=== PATIENT | female | born 1940 | race Caucasian/White ===

== ENCOUNTER 2017-06-28 12:18 | Outpatient (CLI) | payer MEDICARE ==
--- OUTSIDE RECORDS SUMMARY | 2017-06-28 12:22 | XMS | Clinical Summary ---
:1940 Author Organization [facility] Address [address] [place] [address] Phone Care Team Providers Name Role Phone , Primary Care Provider Unavailable Allergies Not on File Current Medications Not on file Active Problems Not on file Social History Tobacco Use Types Packs/Day Years Used Date Never Assessed Sex Assigned at Date Recorded Not on file Last Filed Vital Signs Not on file Plan of Treatment Not on file Results Not on filefrom Last 3 Months
--- NOTE | 2017-06-28 14:56 | ULT ---
RENAL ULTRASOUND: History: Urinary incontinence. Recurrent urinary tract infection. Comparison: None. Technique: Sagittal and transverse imaging of the kidneys is performed. FINDINGS: Bilateral renal cortical thinning. Bilaterally no hydronephrosis. Right kidney measures 9.2 x 4.7 x 4.3 cm. Left kidney measures 9.6 x 5.5 x 4.5 cm. Urinary bladder i s unremarkable with a pre void volume of 39 cubic/cm. IMPRESSION: Bilateral renal cortical thinning. No hydronephrosis. POS: [facility]
== END 2017-06-28 12:19 | disposition home or self-care (01) ==
LOC: SCSULT 12:18
PROVIDERS: ATTEND Urology
DX: N39.46 Mixed incontinence (principal); N39.0 Urinary tract infection, site not specified
CPT/HCPCS: 76770

== ENCOUNTER 2017-11-16 12:55 | Outpatient (CLI) | payer MEDICARE ==
--- NOTE | 2017-11-16 14:39 | CT ---
CT OF BRAIN PERFORMED WITHOUT CONTRAST ENHANCEMENT: Date: 11/16/17 HISTORY: Follow-up of subarachnoid hemorrhage from fall 3 weeks ago. COMPARISON: None. FINDINGS: There is generalized ventricular and sulcal prominence. There is decreased attenuation of the periven tricular white matter. There are no signs of intracerebral hemorrhage or extra-axial fluid collection s. The mastoid air cells and visualized sinuses are clear. IMPRESSION: No acute intracranial abnormalities. POS: [facility]
== END 2017-11-16 12:56 | disposition home or self-care (01) ==
LOC: TBSIIMAG 12:55
PROVIDERS: ATTEND Surgery
DX: S06.6X0A Traumatic subarachnoid hemorrhage without loss of consciousness, initial encounter (principal)
CPT/HCPCS: 70450

== ENCOUNTER 2018-07-03 16:18 | Outpatient (CLI) | payer MEDICARE ==
--- NOTE | 2018-07-03 17:20 | RAD ---
RIGHT ANKLE 3 VIEWS: Date: 07/03/18 HISTORY: Fall. Right ankle injury. FINDINGS: Ankle mortise and talar dome are intact. Osseous structures are demineralized. Mild degenerative calvillo ges. Plantar heel spur. Osseous structures are demineralized. Deformity of the fifth metatarsal is no prabhjot with some linear lucency visible. IMPRESSION: 1. Abnormality of the fifth metatarsal shaft may represent an old injury versus an acute fracture. C linical correlation regarding the right fifth metatarsal shaft is required. Dedicated imaging of the foot may be warranted. 2. Mild degenerative changes of the ankle. Osteoporosis. POS: [facility]
== END 2018-07-03 16:19 | disposition home or self-care (01) ==
LOC: SCSRAD 16:18
PROVIDERS: ATTEND Specialist
DX: S93.401A Sprain of unspecified ligament of right ankle, initial encounter (principal); M19.071 Primary osteoarthritis, right ankle and foot; M81.0 Age-related osteoporosis without current pathological fracture; R93.7 Abnormal findings on diagnostic imaging of other parts of musculoskeletal system

== ENCOUNTER 2018-08-09 14:24 | Outpatient (CLI) | payer MEDICARE ==
--- NOTE | 2018-08-09 14:54 | RAD ---
RIGHT WRIST THREE VIEWS: History: Numbness. FINDINGS: There is prominent arthropathy of the first CMC joint with associated lateral translation of the thum b metacarpal and prominent surrounding heterotopic density. No acute fracture visualized. IMPRESSION: Prominent arthropathy centered at the first CMC joint. No acute fracture visualized. POS: [facility]
--- NOTE | 2018-08-09 14:55 | RAD ---
THREE VIEWS RIGHT HAND: Indication: Numbness. FINDINGS: There is metallic artifact overlying the fourth digit limiting visualization. Prominent arthropathy o f the first CMC joint with associated lateral translation of the thumb metacarpal relative to the tra pezium. There is osseous remodeling and prominent heterotopic density. No acute fracture. Scattered m ild degenerative change of the IP joints is seen. IMPRESSION: Prominent arthropathy centered at the first CMC joint. No acute osseous abnormality is demonstrated. POS: [facility]
== END 2018-08-09 14:25 | disposition home or self-care (01) ==
LOC: SCSRAD 14:24
PROVIDERS: ATTEND Nurse Practitioner Family
DX: R20.0 Anesthesia of skin (principal); M18.11 Unilateral primary osteoarthritis of first carpometacarpal joint, right hand

== ENCOUNTER 2018-09-08 08:43 | Outpatient (CLI) | payer MEDICARE ==
--- NOTE | 2018-09-08 10:50 | RAD ---
LUMBAR SPINE FOUR VIEWS: 09/08/2018 HISTORY: Spinal stenosis. Prior lumbar spine surgery. FINDINGS: Frontal examination of the lumbar spine demonstrates bilateral pedicle screws at L3, L4, and L5, with vertically oriented interlocking rods and intervertebral disk devices at the L3-L4 and L4-L5 levels. Osteopenia limits detailed assessment of the osseous structures, particularly on the frontal view. Neutral lateral examination demonstrates an old anterior wedge compression fracture of L3 with approx imately 35% loss of vertebral body height anteriorly. At L2-L3, there is disk space narrowing and de generative endplate change with anterior osteophyte formation. Similar findings are noted at the L5- S1 level. On neutral lateral imaging, there is anterolisthesis of L5 on S1, measuring approximately 5 mm. Of note, the superior aspect of the posterior fusion hardware is directed slightly posteriorly, exten ding into the posterior soft tissues of the mid lumbar spine. This may account for a palpable abnorm ality in this region. There is a degree of focal kyphosis at L2-L3, on the basis of a remote L3 frac ture, as well as degenerative change at L2-L3. There is a probable remote mild anterior wedge compre ssion fracture of L2 as well. There is mild retrolisthesis on the neutral imaging at L3-L4, measuring 5 mm. With extension, the anterolisthesis at L5-S1 and the retrolisthesis at L3-L4 is unchanged. These fin dings are also unchanged on flexion. IMPRESSION: Postoperative and degenerative change noted within the lumbar spine, as described above. POS: [facility]
== END 2018-09-08 08:44 | disposition home or self-care (01) ==
LOC: SCSRAD 08:43
PROVIDERS: ATTEND Nurse Practitioner Family
DX: M48.061 Spinal stenosis, lumbar region without neurogenic claudication (principal); Z98.1 Arthrodesis status
CPT/HCPCS: 72120

== ENCOUNTER 2018-11-02 11:33 | Outpatient (CLI) | payer MEDICARE ==
--- NOTE | 2018-11-02 13:34 | CT ---
NONCONTRAST CT LUMBAR SPINE: Date: 11-02-18 History: Post lumbar surgery. Patient has low back pain. Comparison: None available. Technique: Contiguous axial CT images are obtained through the lumbar spine from the T12-L1 level to the upper sacrum. Sagittal and coronal reformat images are provided. FINDINGS: Vascular calcifications are seen in the abdominal aorta and involving the iliac arteries. A few radio paque densities are seen in loops of bowel, likely related to ingested material. Retroperitoneal stru ctures otherwise demonstrate a normal CT appearance. Post-surgical changes of the lumbar spine are noted related to posterior fusion of the L3-4 and L4-5 levels with bipedicular screws and posterior rods transfixing these levels. The most superior aspect of the posterior rods are projected posteriorly and appear to be just beneath the skin surface. Vertebroplasty changes of the L2 vertebral body are noted. T12-L1: Mild facet degenerative changes are present. There is no disc bulge or disc herniation. Centr al spinal canal and neural foramina are patent. L1-2: There is minimal disc osteophyte complex which does not result in significant narrowing of the central spinal canal. The neural foramina are patent. L2-3: Vertebroplasty changes with mild wedged shaped compression fracture of the L2 vertebral body ar e noted as described above. There is prominent vacuum phenomenon seen within the intervertebral disc, and there is loss of intervertebral disc height. There is a disc osteophyte complex present at this level which in combination with the exaggerated kyphosis and facet hypertrophic changes does result i n mild to moderate narrowing of the central spinal canal. There is mild right sided neural foraminal narrowing due to encroachment posteriorly by facet hypertrophic changes. The left neural foramen is p atent. L3-4: There is fusion at this level. There is retrolisthesis of L3 on L4. There is also mild wedge sh aped deformity of the L3 vertebral body. This is stable when compared to MRI of the lumbar spine on . There is mild right sided neural foraminal narrowing but the left neural foramen does appear patent. Intradiscal prosthesis is present at the L3-4 level. L4-5: There is fusion at this level with intradiscal prosthesis present. Right laminotomy defect is p resent at this level. The left neural foramen is patent, but there is mild right sided neural foramin al narrowing primarily related to encroachment due to mild facet degenerative changes. The central sp inal canal is patent. L5-S1: There is trace anterolisthesis of L5 on S1 which measures approximately 4 mm. There is loss of intervertebral disc height with vacuum phenomenon seen in the intervertebral disc. Facet hypertrophi c changes are noted. There is a broad based disc osteophyte complex and facet hypertrophic changes. T here is no significant narrowing of the central spinal canal at this level, but there is moderate lef t sided neural foraminal narrowing with mild to moderate right sided neural foraminal narrowing. There is a calcified/ossific density seen extending from the level of the S1 vertebral body and exten ds anteriorly and inferiorly into the lower pelvis but is incompletely imaged. This structure was als o present on prior MRIs of the lumbar spine in 2015 and on 10-22-13. IMPRESSION: 1. Post-surgical changes as well as degenerative changes of the lumbar spine. Bipedicular screws and posterior rods transfix the L3 through L5 levels. No perihardware lucency is seen to suggest hardware complication. However, due to patient's exaggerated kyphosis, the superior aspect of the posterior r ods project posteriorly and appear to be just beneath the skin surface. This may result in a palpable abnormality in this region. 2. Exaggerated kyphosis of the lumbar spine centered at the L2-3 level related to mild wedge shaped c ompression fractures of the L2 and L3 vertebral bodies. Vertebroplasty changes of the L2 vertebral burton dy are noted. 3. Grade I anterolisthesis of L5 on S1 with facet hypertrophic changes at this level as well as disc degenerative changes. 4. Elongated calcific/ossific density extending from the level of the lower aspect of the S1 vertebra l body which extends anteriorly and inferiorly into the pelvis. The most caudal extent is not seen. T his could be related to an area of heterotopic ossification. This finding was present on prior MRIs o f the lumbar spine in 2013 and 2015. 5. Right laminotomy defects at the L3-4 and L4-5 levels. POS: [facility]
== END 2018-11-02 11:34 | disposition home or self-care (01) ==
LOC: TBSIIMAG 11:33
PROVIDERS: ATTEND Neurological Surgery
DX: M54.5 Low back pain (principal); S32.020A Wedge compression fracture of second lumbar vertebra, initial encounter for closed fracture; S32.030A Wedge compression fracture of third lumbar vertebra, initial encounter for closed fracture; M43.17 Spondylolisthesis, lumbosacral region; M51.37 Other intervertebral disc degeneration, lumbosacral region; Z98.890 Other specified postprocedural states
CPT/HCPCS: 72131

== ENCOUNTER 2018-12-27 04:45 | Outpatient (CLI) | payer MEDICARE, OTHER | END 2018-12-27 04:46 | disposition home or self-care (01) | LOC: LABBT 04:45 | PROVIDERS: ATTEND Neurological Surgery | DX: Z01.818 Encounter for other preprocedural examination (principal); T84.498A Other mechanical complication of other internal orthopedic devices, implants and grafts, initial encounter | CPT/HCPCS: 93005; 93010 ==

== ENCOUNTER 2018-12-27 13:30 | Inpatient (IN) | payer MEDICARE, OTHER ==
[2018-12-27 14:04] VITALS: BMI 28.0
--- NOTE | 2018-12-28 16:12 | HP ---
HISTORY OF PRESENT ILLNESS: Ms. Decker is a pleasant 78-year-old woman, here for evaluation of lower back pain associated with fusion, hardware protuberance from an L3-L5 fusion she had in 2004. She has had increased pain toward the end of last year with what appears to be neurocompression deformities at L2-L3, which was treated with kyphoplasty with Dr. Onofre, resulting in 30% improvement in her symptoms. She has an MRI revealing severe kyphotic deformity beginning at L2 and progressing cranially. She has a new CT as well that reveals bony fusion across her L3 to L5 segments, but there is significant protuberance of her fusion construct at the cranial aspect at L3, where it is external to the subcu layer and is immediately deep to the epidermal layer as it appears on CAT scan. The system used is a [employer] Sextant percutaneous system. She hopes to get this removed surgically. PAST MEDICAL HISTORY: Significant for coronary arterial disease, hypertension, hypothyroidism, anxiety, bladder dysfunction, and mild cognitive impairment. CURRENT MEDICATIONS: 1. Tylenol No. 4. 2. Aricept. 3. Restoril. 4. Rizatriptan. 5. Aspirin. 6. Clonidine. 7. Metoprolol. 8. Levothyroxine. 9. Duloxetine. 10. Memantine. 11. Oxybutynin. ALLERGIES: TO ERYTHROMYCIN, BACTRIM, TROSPIUM, NEURONTIN, NUBAIN, TOPAMAX, MORPHINE, CONTRAST DYE, AND IV IODINE. PAST SURGICAL HISTORY: Lumbar fusion. PHYSICAL EXAMINATION: GENERAL: The patient is alert and oriented x3. Gait is severely antalgic. She has a significantly stooped posture and is using a walker to ambulate. Upon examination, she has two lateral scars with very obvious hardware protuberance in the upper lumbar spine. I am able to feel the gayle ends in full circumference at this level as well as the screw heads. This is notable for likely causing her pains. ASSESSMENT: Hardware-mediated back pain. PLAN: Dr. Hernandez met with the patient, reviewed imaging, and advocated for exploration of fusion and hardware removal. He explained to the patient the risks, benefits, and alternatives to the procedure. The patient expressed understanding and elected to move forward with surgery as discussed. I do believe the patient is mentally competent capable of making medical decisions for herself and we will move forward with surgery as planned. Job ID: [id number]
[2018-12-29] MEDS ORDERED: Thrombin 5000 UNITS/5 ML VIAL ONE (07:57)
[2018-12-29] MEDS ORDERED: Bupivacaine HCl 0.5%/Epinephrine 1:200,000/PF 30 ml Vial ONE (07:57)
[2018-12-29] MEDS ORDERED: Lidocaine 2% Jelly 5 ML TUBE ONE (08:21)
[2018-12-29] MEDS ORDERED: Fentanyl 100 MCG/2 ML VIAL ONE ×3 (08:21→11:14)
--- NOTE | 2018-12-29 10:33 | OP ---
DATE OF PROCEDURE: 12/29/2018 MACHINE SPECIALIST: Kory Walker PA-C. INDICATION: Pain. DIAGNOSIS: Mechanical back pain secondary to protuberant hardware. PROCEDURES PERFORMED: Exploration of effusion and removal of hardware. ANESTHESIA: General. DESCRIPTION OF PROCEDURE: The patient was brought into the operating room and placed under general anesthesia. She was flipped from the supine to prone position on the operating room table. A linear incision was planned across the lower lumbar segments. After prepping and draping and after an appropriate preoperative pause, the incision was created. The soft tissues were swept away from midline. Her large protuberant percutaneously placed hardware was identified. On both sides, three set screws were removed and three pedicle screws were removed on each side. The rods were also removed. The hardware was removed in total. Very prominent spinous process was also shaved down for comfort. The wound was then copiously irrigated. Gelfoam pledgets were placed within the screw holes of the pedicle screws. The wound was irrigated. Hemostasis was maintained throughout. The wound was then closed in anatomic layers and a pressure dressing was applied. There were no known procedural complications. Job ID: [id number]
[2018-12-29] MEDS ORDERED: HYDROcodone/Acetaminophen 5/325 mg Tablet ONE (12:37)
== END 2018-12-29 13:20 | disposition home or self-care (01) | DRG 517 ==
LOC: SURG A 12-29 06:21
PROVIDERS: ADMIT Neurological Surgery; ATTEND Neurological Surgery
PROC: 0SP00AZ Removal of Interbody Fusion Device from Lumbar Vertebral Joint, Open Approach (ICD-10-PCS; principal; 2018-12-29)
DX: T84.498A Other mechanical complication of other internal orthopedic devices, implants and grafts, initial encounter (principal); I10 Essential (primary) hypertension; E03.9 Hypothyroidism, unspecified; F41.9 Anxiety disorder, unspecified
CPT/HCPCS: 76000; J0670; J3010

== ENCOUNTER 2019-02-13 13:56 | Outpatient (CLI) | payer MEDICARE, OTHER ==
--- NOTE | 2019-02-13 14:12 | RAD ---
RIGHT HIP TWO VIEWS: History: Right hip pain. FINDINGS/IMPRESSION: There are degenerative changes seen. No fracture, dislocation, or bony destruction is identified. POS: [facility]
== END 2019-02-13 13:57 | disposition home or self-care (01) ==
LOC: TBSIIMAG 13:56
PROVIDERS: ATTEND Neurological Surgery
DX: M25.551 Pain in right hip (principal); M16.11 Unilateral primary osteoarthritis, right hip

== ENCOUNTER 2019-04-19 14:37 | Outpatient (CLI) | payer MEDICARE ==
--- NOTE | 2019-04-19 15:59 | CT ---
CT LUMBAR SPINE WITHOUT CONTRAST: Date: 04/19/19 HISTORY: Low back pain. COMPARISON: Lumbar spine CT dated 11/02/18. FINDINGS: The aortic contour is nonaneurysmal. No retroperitoneal or periaortic adenopathy. There is bilateral paraspinal muscle atrophy. There has been interval removal of the posterior spinal fusion hardware from L3-L5. Laminectomy mondragon es with partial removal of the spinous processes of L3 and L4 and laminectomy at L4. No acute superim posed fracture or malalignment. There continues to be severe bilateral neural foraminal narrowing at L5-S1 due to posterior disc osteophyte complexes. No large fluid collection is appreciated. Due to the exaggerated kyphosis, the osteotomy from the L3 spinous process is within 3 mm of the skin surface. IMPRESSION: Interval removal of the posterior spinal fusion hardware at L3-L5 with subsequent L3 and L4 hemilamin ectomy changes, as well as osteotomy of the L3 spinous process. POS: [facility]
== END 2019-04-19 14:38 | disposition home or self-care (01) ==
LOC: TBSIIMAG 14:37
PROVIDERS: ATTEND Neurological Surgery
DX: M54.5 Low back pain (principal); Z98.1 Arthrodesis status
CPT/HCPCS: 72131

== ENCOUNTER 2019-06-06 15:41 | Outpatient (CLI) | payer MEDICARE ==
--- NOTE | 2019-06-06 16:07 | RAD ---
EXAM: 2 views of the abdomen HISTORY: Right lower quadrant abdominal pain. Recent bladder Botox injection COMPARISON: None FINDINGS: 2 views of the abdomen shows a nonspecific, nonobstructive bowel gas pattern. No free air o r air-fluid levels are seen on upright examination. No suspicious calcifications are seen. Vertebroplasty cement is seen in the spine. Surgical clips project over the mid abdomen. IMPRESSION: No evidence of bowel obstruction.
== END 2019-06-06 15:42 | disposition home or self-care (01) ==
LOC: SCSRAD 15:41
PROVIDERS: ATTEND Nurse Practitioner Family
DX: R10.31 Right lower quadrant pain (principal)
CPT/HCPCS: 74019

== ENCOUNTER 2019-08-09 07:15 | Outpatient (CLI) | payer MEDICARE, OTHER ==
--- NOTE | 2019-08-09 08:25 | CT ---
CT ABDOMEN WITH CONTRAST CT PELVIS WITH CONTRAST: DATE: 08/09/2019 HISTORY: 79-year-old female with constipation and chronic right lower quadrant abdominal pain. TECHNIQUE: IV injection of iodinated contrast media: Administered Oral contrast media:Administered COMPARISON: None FINDINGS: Liver: No focal solid mass. Spleen: No splenomegaly.. Pancreas: No mass or surrounding fat stranding.. Adrenals: No mass.. Kidneys: No hydronephrosis or enhancement abnormalities.. Ureters: No dilation. Bladder: Inferior position in pelvis. Diffuse mural thickening. Decompressed.. Abdominal aorta: No aneurysm. Small bowel: No dilation. Colon: Moderate volume of stool. Diverticula throughout entire colon. No adjacent fat stranding. Appendix: Not identified. Perhaps surgically absent. Free air: None. Free fluid: None. Lumbar spine: Gibbus angulation at L2-3. Laminectomy defects. Vertebral bodies the cement at L2 verte bral body which has mild anterior wedge old compression fracture deformity. High-grade degenerative disc disease L2-3 and L5-S1. High-grade bilateral neural foraminal stenosis at L5-S1. IMPRESSION: 1. No obvious malignancy identified.. 2. Pelvic relaxation and status post hysterectomy. 3. Diffuse mural thickening of urinary bladder. Could be due to decompressed state, or could represen t acute or chronic cystitis. Clinical correlation recommended. 4. Colonic diverticulosis without diverticulitis. 5. Lumbar spondylosis and chronic changes as described above.
[2019-08-09] MEDS ORDERED: Iopamidol 370 76% 100 ML VIAL ONE (15:42)
== END 2019-08-09 07:16 | disposition home or self-care (01) ==
LOC: CT 07:15
PROVIDERS: ATTEND Internal Medicine
DX: R10.31 Right lower quadrant pain (principal); K59.00 Constipation, unspecified; K57.30 Diverticulosis of large intestine without perforation or abscess without bleeding; M47.816 Spondylosis without myelopathy or radiculopathy, lumbar region; N32.9 Bladder disorder, unspecified; Z90.710 Acquired absence of both cervix and uterus
CPT/HCPCS: 74177

== ENCOUNTER 2019-11-23 10:10 | Outpatient (CLI) | payer MEDICARE ==
--- NOTE | 2019-11-23 11:53 | MRI ---
MR the lumbar spine with and without contrast: 11/23/2019 History: Lumbar radiculopathy with chronic back pain and prior lumbar spine surgery COMPARISON: None. TECHNIQUE: Multiplanar multisequence MR images were obtained of lumbar spine with and without IV cont rast FINDINGS: On the basis of 5 lumbar type vertebral bodies, conus medullaris terminates at theL1 level. Sagittal STIR imaging demonstrates no focal area of osseous marrow edema. When compared to the 2013 e xamination there has been interval removal of bilateral pedicle screws with vertically oriented interlocking rods at the L3, L4, and L5 levels. There are intervertebral disc devices at the L3-4 and L5-4-5 level. There has been interval kyphoplasty at L2. There is focal lumbar spine kyphosis at the L2-3 level secondary to chronic L2 and L3 fractures, with approximately 30% loss of vertebral bod y height anteriorly at L2 and with approximately 50% loss of vertebral body height at L3. T12-L1:No central canal or neural foraminal stenosis. Mild bilateral facet hypertrophy with disc aminta ccation. L1-2:Bilateral facet hypertrophy and hypertrophy of ligamentum flavum. No significant central canal o r neural foraminal stenosis L2-3:Disc space narrowing with disc desiccation and vacuum disc formation. Mild bilateral facet hyper trophy. No significant central canal or neural foraminal stenosis L3-4:Bilateral facet hypertrophy with mild bilateral neural foraminal stenosis. No central canal sten osis. L4-5:Bilateral facet hypertrophy with mild/moderate bilateral neural foraminal stenosis. No significa nt central canal stenosis. L5-S1:Bilateral facet hypertrophy. Mild anterolisthesis of L5 on S1 measuring approximately 4-5 mm. N o central canal stenosis. Mild bilateral neural foraminal stenosis. Image retroperitoneal structures demonstrateno acute findings. The postcontrast imaging demonstrates a single mildly enhancing nerve root of the cauda equina seen a long the ventral aspect of the cauda equina superiorly extending posteriorly within the inferior aspect of the midline cauda equina suggesting a solitary inflamed nerve root. Postcontrast imaging ap pears grossly unremarkable otherwise. IMPRESSION: Postoperative and degenerative changes of the lumbar spine as described above.
== END 2019-11-23 10:11 | disposition home or self-care (01) ==
LOC: SCSMRI 10:10
PROVIDERS: ATTEND Neurological Surgery
DX: M47.26 Other spondylosis with radiculopathy, lumbar region (principal); Z98.890 Other specified postprocedural states
CPT/HCPCS: 72158; 82565

== ENCOUNTER 2020-03-03 08:49 | Outpatient (CLI) | payer MEDICARE, OTHER ==
[2020-03-04 11:10] LABS: SARS-CoV-2 MS2 Positive; SARS-CoV-2 N Gene Negative; SARS-CoV-2 S Gene Negative; SARS-CoV-2 orf1ab Negative
== END 2020-03-03 08:50 | disposition home or self-care (01) ==
LOC: LABBT 08:49
PROVIDERS: ATTEND Neurological Surgery
DX: Z01.818 Encounter for other preprocedural examination (principal); Z11.59 Encounter for screening for other viral diseases; M54.5 Low back pain
CPT/HCPCS: 93005; U0003; 87635; 93010

== ENCOUNTER 2020-03-05 06:29 | Day surgery (SDC) | payer MEDICARE, OTHER ==
[2020-03-03 14:31] VITALS: BMI 23.5
--- NOTE | 2020-03-04 13:27 | HP ---
HISTORY OF PRESENT ILLNESS: Ms. Decker is an 79-year-old woman, known to us for prior hardware removal, who returns now with an ever increasing lower back pain with rather protuberant spinous process even upon my external examination as she walks into the room. She brings in the CT scan, which reveals quite significant protuberance at L2 above the operative site from last year. She hopes to move forward with resecting this as she feels that her pain is most significant around this site. PAST MEDICAL HISTORY: Significant for coronary arterial disease, hypertension, hypothyroidism, anxiety, bladder dysfunction, and mild cognitive impairment. CURRENT MEDICATIONS: 1. Tylenol No. 4. 2. Aricept. 3. Restoril. 4. Rizatriptan. 5. Aspirin. 6. Clonidine. 7. Metoprolol. 8. Levothyroxine. 9. Duloxetine. 10. Memantine. 11. Oxybutynin. ALLERGIES: TO ERYTHROMYCIN, BACTRIM, TROSPIUM, NEURONTIN, NUBAIN, TOPAMAX, MORPHINE, CONTRAST DYE, AND IV IODINE. PAST SURGICAL HISTORY: Lumbar fusion and lumbar hardware removal. PHYSICAL EXAMINATION: The patient is alert and oriented x3. Gait is profoundly antalgic and stooped, using a walker. She has an extraordinarily protuberant spinous process that is palpable and exquisitely tender to palpation. ASSESSMENT: Kyphosis with lumbar back pain. PLAN: Dr. Hernandez met with the patient, reviewed imaging, and advocated for an L2 spinous process resection. He explained to the patient the risks, benefits, and alternatives to the procedure. The patient expressed understanding and elected to move forward with surgery as discussed. I do believe that the patient is mentally competent and capable of making medical decisions for herself. We will move forward with surgery as planned. Job ID: [id number]
[2020-03-05] MEDS ORDERED: EPINEPHrine 1 MG/ML AMP ONE (06:55)
[2020-03-05] MEDS ORDERED: Bupivacaine PF 0.5% 30 ML VIAL ONE (06:55)
[2020-03-05] MEDS ORDERED: Thrombin 5000 UNITS/5 ML VIAL ONE (06:55)
[2020-03-05] MEDS ORDERED: Fentanyl 100 MCG/2 ML VIAL ONE ×2 (07:11→09:07)
[2020-03-05] MEDS ORDERED: Scopolamine 1.5 mg/72 hour Patch ONE (07:38)
[2020-03-05] MEDS ORDERED: Famotidine/PF 20 mg/2ml Vial ONE (07:40)
[2020-03-05] MEDS ORDERED: SUGAMMADEX SODIUM 200 MG/2 ML VIAL ONE (08:19)
--- NOTE | 2020-03-05 09:48 | OP ---
DATE OF PROCEDURE: 03/05/2020 SLIP COVER CUTTER: Kory Walker PA-C INDICATION: Pain. DIAGNOSIS: Kyphotic deformity with protuberant spinous process and pain. PROCEDURE PERFORMED: Resection of posterior element. ANESTHESIA: General. DESCRIPTION OF PROCEDURE: The patient was brought into the operating room and placed under general anesthesia. She was flipped from the supine to prone position on the operating room table. A linear incision was planned over the L2 region corresponding to a very protuberant spinous process secondary to her kyphotic deformity beneath the skin. After prepping and draping and after an appropriate preoperative pause, the incision was created. The soft tissues were swept away from midline. A self-retaining retractor was placed. An Adson rongeur was used to remove the spinous process of the L2 segment in order to smooth it more consistently with the spinous processes at the levels above and beneath. After removing the spinous process, the wound was irrigated. Hemostasis was maintained throughout. The wound was then closed in anatomic layers and a pressure dressing was applied. There were no known procedural complications. Job ID: [id number]
[2020-03-05] MEDS ORDERED: Acetaminophen/Codeine 30-300mg Tablet ONE ×2 (10:14→11:39)
[2020-03-05] MEDS ORDERED: Rocuronium Bromide 10 MG/ML (10ML VIAL) ONE (11:20)
[2020-03-05] MEDS ORDERED: Lidocaine 1% PF 5 ML VIAL ONE (11:20)
[2020-03-05] MEDS ORDERED: Ondansetron PF 4 MG/2 ML Vial ONE (11:20)
[2020-03-05] MEDS ORDERED: PROPOFOL 200 MG/20 ML VIAL ONE (11:20)
[2020-03-05] MEDS ORDERED: Metoclopramide HCl 10 MG/2 ML VIAL ONE (11:20)
[2020-03-05] MEDS ORDERED: Dexamethasone 20 MG/5 ML VIAL ONE (11:20)
== END 2020-03-05 12:20 | disposition home or self-care (01) ==
LOC: SDC 06:29
PROVIDERS: ATTEND Neurological Surgery
PROC: 0QB00ZZ Excision of Lumbar Vertebra, Open Approach (ICD-10-PCS; principal; 2020-03-05)
DX: M40.205 Unspecified kyphosis, thoracolumbar region (principal); I25.10 Atherosclerotic heart disease of native coronary artery without angina pectoris; I10 Essential (primary) hypertension; E03.9 Hypothyroidism, unspecified; F41.9 Anxiety disorder, unspecified; G31.84 Mild cognitive impairment of uncertain or unknown etiology; Z79.82 Long term (current) use of aspirin; Z79.899 Other long term (current) drug therapy; Z88.1 Allergy status to other antibiotic agents; Z88.2 Allergy status to sulfonamides; Z88.5 Allergy status to narcotic agent; Z88.8 Allergy status to other drugs, medicaments and biological substances; Z91.041 Radiographic dye allergy status; Z98.1 Arthrodesis status
CPT/HCPCS: J0171; J0690; J1100; J2001; J2405; J2704; J2765; J3010; S0020; S0028

== ENCOUNTER 2021-10-11 17:40 | Inpatient (IN) | payer MEDICARE ==
[2021-10-11] MEDS ORDERED: Fentanyl 100 MCG/2 ML VIAL ONE (17:55)
[2021-10-11 18:18] LABS: #Eosinphils 0.1 thou/uL (0.0-0.7); #Lymphocytes 1.7 thou/uL (1.20-3.40); #Monocytes 0.5 thou/uL (0.11-0.59); #Neutrophils 5.2 thou/uL (1.40-6.50); %Basophils 0.5 % (0.0-1.0); %Eosinophils 0.8 % (0.0-10.0); %Lymphocytes 22.1 % (21.0-51.0); %Monocytes 7.1 % (0.0-10.0); %Neutrophils 69.5 % (42.0-75.0); Hemoglobin 13.2 g/dL (12.0-16.0); Mean Corpuscular HGB CONC 33.8 g/dL (32.0-36.0); Mean Corpuscular Hemoglobin 34.6 pg (27.0-31.0); Mean Platelet Volume 7.2 fL (7.4-10.4); Platelet Count 164 thou/uL (130-400); RBC Distribution Width 12.5 % (11.5-14.5); White Blood Cell (WBC) Count 7.5 thou/uL (4.8-10.8)
[2021-10-11 18:41] LABS: ALT (SGPT) 11 U/L (8-55); AST (SGOT) 15 U/L (5-34); Albumin 3.8 g/dL (3.4-4.8); Alkaline Phosphatase 61 U/L (40-110); Anion Gap 14 mmol/L (10-20); BUN (Urea Nitrogen) 16 mg/dL (9.8-20.1); Calc. Creatinine Clearance 0 mL/min (70-130); Calcium 9.8 mg/dL (7.8-10.44); Carbon Dioxide 24 mmol/L (23-31); Chloride 105 mmol/L (98-107); Globulin 2.4 g/dL (2.4-3.5); Glucose 140 mg/dL (83-110); Potassium 4.2 mmol/L (3.5-5.1); Protein, Total 6.2 g/dL (5.8-8.1); Sodium 139 mmol/L (136-145)
[2021-10-11 19:06] LABS: Bilirubin Negative (Negative); Blood, Urine Negative (Negative); Clarity Turbid (Clear); Glucose, Urine (Dipstick) Normal (Negative); Ketone, Urine Negative (Negative); Leukocyte Negative Leu/uL (Negative); Nitrite Negative (Negative); Protein, Urine (Dipstick) Negative (Neg-Trace); Specific Gravity, Urine 1.019 (1.002-1.036); Urobilinogen Normal mg/dL (Less than 2); pH, Urine 6.5 (5.0-9.0)
[2021-10-11] MEDS ORDERED: traMADol HCl 50 MG TAB PO PRN ×2 (20:07)
[2021-10-11] MEDS ORDERED: Dextrose 50% Abboject 50 ML SYRINGE SLOW IVP PRN (20:07)
[2021-10-11] MEDS ORDERED: Fentanyl 100 MCG/2 ML VIAL SLOW IVP PRN (20:07)
[2021-10-11] MEDS ORDERED: Ondansetron ODT 4 MG TAB PO PRN (20:07)
[2021-10-11] MEDS ORDERED: Dextrose 5% in Water 1,000 ML IV PRN (20:07)
[2021-10-11] MEDS ORDERED: hydrALAZINE 20 MG/ML VIAL SLOW IVP PRN (20:07)
[2021-10-11] MEDS ORDERED: Ondansetron PF 4 MG/2 ML Vial IVP PRN (20:07)
[2021-10-11 20:58] LABS: SARS-CoV-2 NAA Rapid Test Not Detected (NotDetected)
[2021-10-11] MEDS: Cyclobenzaprine 10 MG TAB PO PRN (21:42)
[2021-10-11] MEDS: Famotidine 20 MG TAB PO SCH (21:42)
[2021-10-11] MEDS: Ibuprofen 800 MG TAB PO SCH (21:43)
[2021-10-11] MEDS: Sodium Chloride 0.9% 1,000 ML IV SCH (21:47)
[2021-10-11] MEDS: Acetaminophen 325 MG TAB PO SCH (23:30)
[2021-10-12 02:22] VITALS: BMI 26.8
[2021-10-12] MEDS: Sodium Chloride 0.9% 1,000 ML IV SCH ×2 (04:39→05:07)
[2021-10-12] MEDS: Ibuprofen 800 MG TAB PO SCH ×3 (04:59→20:36)
[2021-10-12] MEDS: Acetaminophen 325 MG TAB PO SCH ×2 (04:59→20:36)
[2021-10-12 05:26] LABS: #Basophils 0.1 thou/uL (0.0-0.2); #Lymphocytes 1.4 thou/uL (1.20-3.40); #Monocytes 0.7 thou/uL (0.11-0.59); #Neutrophils 7.8 thou/uL (1.40-6.50); %Basophils 0.6 % (0.0-1.0); %Eosinophils 0.2 % (0.0-10.0); %Lymphocytes 13.9 % (21.0-51.0); %Monocytes 7.4 % (0.0-10.0); %Neutrophils 77.9 % (42.0-75.0); Hemoglobin 9.7 g/dL (12.0-16.0); Mean Corpuscular HGB CONC 32.8 g/dL (32.0-36.0); Mean Corpuscular Hemoglobin 33.8 pg (27.0-31.0); Mean Platelet Volume 7.3 fL (7.4-10.4); Platelet Count 145 thou/uL (130-400); RBC Distribution Width 12.7 % (11.5-14.5); Red Blood Cell (RBC) Count 2.86 mill/uL (4.20-5.40)
[2021-10-12 05:37] LABS: Anion Gap 12 mmol/L (10-20); BUN (Urea Nitrogen) 16 mg/dL (9.8-20.1); Calc. Creatinine Clearance 57 mL/min (70-130); Calcium 8.5 mg/dL (7.8-10.44); Carbon Dioxide 22 mmol/L (23-31); Chloride 107 mmol/L (98-107); Glucose 124 mg/dL (83-110); Potassium 4.2 mmol/L (3.5-5.1); Sodium 137 mmol/L (136-145)
[2021-10-12] MEDS ORDERED: Fentanyl 100 MCG/2 ML VIAL ONE ×3 (11:05→14:35)
[2021-10-12] MEDS ORDERED: Tranexamic Acid 1,000 MG/10 ML VIAL ONE (11:24)
[2021-10-12] MEDS ORDERED: ceFAZolin 2 GM/DEX 5% 100 ML BAG ONE (11:24)
[2021-10-12] MEDS ORDERED: Sodium Chloride 0.9% 100 ML ONE (11:24)
[2021-10-12] MEDS ORDERED: Dexamethasone 20 MG/5 ML VIAL ONE (12:02)
[2021-10-12] MEDS ORDERED: Ondansetron PF 4 MG/2 ML Vial ONE (12:02)
[2021-10-12] MEDS ORDERED: Bupivacaine HCl 0.5%/Epinephrine 1:200,000/PF 30 ml Vial ONE (12:02)
[2021-10-12] MEDS ORDERED: PROPOFOL 200 MG/20 ML VIAL ONE (12:02)
[2021-10-12] MEDS ORDERED: Lidocaine 1% PF 5 ML VIAL ONE (12:02)
[2021-10-12] MEDS ORDERED: ePHEDrine 50 MG/ML VIAL ONE (12:02)
[2021-10-12] MEDS ORDERED: Phenylephrine 10 MG/ML VIAL ONE (12:02)
[2021-10-12] MEDS ORDERED: Rocuronium Bromide 10 MG/ML (10ML VIAL) ONE (12:02)
[2021-10-12] MEDS ORDERED: Promethazine HCl 25 MG/ML VIAL IM PRN (13:59)
[2021-10-12] MEDS ORDERED: Ondansetron HCl/PF 4 MG/2 ML Vial IVP PRN (13:59)
[2021-10-12] MEDS ORDERED: Promethazine HCl 25 MG/ML VIAL IVPB PRN (13:59)
[2021-10-12] MEDS: Famotidine 20 MG TAB PO SCH (20:32)
[2021-10-12] MEDS: ceFAZolin Sodium/D5W 2 GM in Premix Bag 1 BAG IVPB SCH (20:33)
[2021-10-13] MEDS: Acetaminophen 325 MG TAB PO SCH ×4 (03:16→17:11)
[2021-10-13 05:11] LABS: Hemoglobin 8.7 g/dL (12.0-16.0); Mean Corpuscular HGB CONC 34.8 g/dL (32.0-36.0); Mean Corpuscular Hemoglobin 33.9 pg (27.0-31.0); Mean Corpuscular Volume 97.7 fL (78.0-98.0); Mean Platelet Volume 7.2 fL (7.4-10.4); Platelet Count 124 thou/uL (130-400); RBC Distribution Width 15.7 % (11.5-14.5); Red Blood Cell (RBC) Count 2.57 mill/uL (4.20-5.40); White Blood Cell (WBC) Count 10.3 thou/uL (4.8-10.8)
[2021-10-13 05:26] LABS: Anion Gap 11 mmol/L (10-20); BUN (Urea Nitrogen) 14 mg/dL (9.8-20.1); Calc. Creatinine Clearance 53 mL/min (70-130); Carbon Dioxide 24 mmol/L (23-31); Chloride 109 mmol/L (98-107); Glucose 103 mg/dL (83-110); Potassium 4.1 mmol/L (3.5-5.1); Sodium 140 mmol/L (136-145)
[2021-10-13] MEDS: Ibuprofen 800 MG TAB PO SCH ×3 (05:43→21:23)
[2021-10-13] MEDS: ceFAZolin Sodium/D5W 2 GM in Premix Bag 1 BAG IVPB SCH (05:43)
[2021-10-13] MEDS: Levothyroxine Sodium 75 MCG TAB PO SCH (10:01)
[2021-10-13] MEDS: Senokot S 8.6-50 MG TAB PO SCH (10:01)
[2021-10-13] MEDS: buPROPion 75 MG TAB PO SCH ×2 (10:01→21:23)
[2021-10-13] MEDS: Polyethylene Glycol 3350 17 GM Packet PO SCH (10:02)
[2021-10-13] MEDS: Ascorbic Acid 500 mg Chewable Tablet PO SCH (10:02)
[2021-10-13] MEDS: Metoprolol Tartrate 25 MG TAB PO SCH ×3 (10:03→22:39)
[2021-10-13] MEDS: Famotidine 20 MG TAB PO SCH (21:23)
[2021-10-13] MEDS: Donepezil HCl 10 MG TAB PO SCH (21:23)
[2021-10-13] MEDS ORDERED: Hydrocortisone Sod Succ/PF 100 mg/2 ml Vial IVP SCH (21:30)
[2021-10-14] MEDS: Cyclobenzaprine 10 MG TAB PO PRN ×2 (00:36→20:40)
[2021-10-14] MEDS: Melatonin 3 MG TAB PO PRN ×2 (00:36→20:32)
[2021-10-14] MEDS: Acetaminophen 325 MG TAB PO SCH ×5 (00:37→23:51)
[2021-10-14] MEDS: Ibuprofen 800 MG TAB PO SCH ×3 (06:10→20:39)
[2021-10-14] MEDS: Hydrocortisone Sod Succ/PF 100 mg/2 ml Vial IVP SCH ×4 (06:11→23:52)
[2021-10-14 06:59] LABS: Hemoglobin 7.6 g/dL (12.0-16.0); Mean Corpuscular HGB CONC 34.1 g/dL (32.0-36.0); Mean Corpuscular Hemoglobin 33.5 pg (27.0-31.0); Mean Corpuscular Volume 98.1 fL (78.0-98.0); Platelet Count 108 thou/uL (130-400); RBC Distribution Width 15.2 % (11.5-14.5); Red Blood Cell (RBC) Count 2.28 mill/uL (4.20-5.40); White Blood Cell (WBC) Count 6.5 thou/uL (4.8-10.8)
[2021-10-14 07:04] LABS: Anion Gap 8 mmol/L (10-20); BUN (Urea Nitrogen) 16 mg/dL (9.8-20.1); Calc. Creatinine Clearance 52 mL/min (70-130); Carbon Dioxide 27 mmol/L (23-31); Chloride 112 mmol/L (98-107); Glucose 95 mg/dL (83-110); Magnesium 1.8 mg/dL (1.6-2.6); Phosphorus 2.4 mg/dL (2.3-4.7); Potassium 3.5 mmol/L (3.5-5.1); Sodium 143 mmol/L (136-145)
[2021-10-14] MEDS ORDERED: Potassium Phosphate 30 MMOL, Magnesium Sulfate 2 GM in Sodium Chloride 0.9% 250 ML IVPB SCH (09:00)
[2021-10-14] MEDS ORDERED: Magnesium Sulfate 2 GM in Sodium Chloride 0.9% 100 ML IVPB SCH (09:00)
[2021-10-14] MEDS: Ferrous Sulfate 325 MG TAB PO SCH (09:01)
[2021-10-14] MEDS: buPROPion 75 MG TAB PO SCH ×2 (09:01→20:29)
[2021-10-14] MEDS: Ascorbic Acid 500 mg Chewable Tablet PO SCH (09:02)
[2021-10-14] MEDS: Levothyroxine Sodium 75 MCG TAB PO SCH (09:02)
[2021-10-14] MEDS: Senokot S 8.6-50 MG TAB PO SCH (09:02)
[2021-10-14] MEDS: Nitrofurantoin Monohyd/M-Cryst 100 MG CAP PO SCH (09:02)
[2021-10-14] MEDS: Polyethylene Glycol 3350 17 GM Packet PO SCH (09:03)
[2021-10-14] MEDS: Metoprolol Tartrate 25 MG TAB PO SCH ×2 (09:03→20:33)
[2021-10-14 17:42] LABS: Hemoglobin 8.7 g/dL (12.0-16.0)
[2021-10-14] MEDS: Famotidine 20 MG TAB PO SCH (20:30)
[2021-10-14] MEDS: Donepezil HCl 10 MG TAB PO SCH (20:30)
[2021-10-15] MEDS: Acetaminophen 325 MG TAB PO SCH ×2 (05:05→12:19)
[2021-10-15] MEDS: Hydrocortisone Sod Succ/PF 100 mg/2 ml Vial IVP SCH (05:06)
[2021-10-15] MEDS: Ibuprofen 800 MG TAB PO SCH (05:07)
[2021-10-15 08:16] LABS: #Lymphocytes 1.2 thou/uL (1.20-3.40); #Monocytes 0.4 thou/uL (0.11-0.59); #Neutrophils 6.1 thou/uL (1.40-6.50); %Basophils 0.1 % (0.0-1.0); %Eosinophils 0.6 % (0.0-10.0); %Lymphocytes 15.5 % (21.0-51.0); %Monocytes 5.3 % (0.0-10.0); %Neutrophils 78.6 % (42.0-75.0); Hemoglobin 8.8 g/dL (12.0-16.0); Mean Corpuscular HGB CONC 33.9 g/dL (32.0-36.0); Mean Corpuscular Hemoglobin 33.2 pg (27.0-31.0); Mean Corpuscular Volume 97.9 fL (78.0-98.0); Mean Platelet Volume 6.8 fL (7.4-10.4); Platelet Count 140 thou/uL (130-400); RBC Distribution Width 14.6 % (11.5-14.5); Red Blood Cell (RBC) Count 2.64 mill/uL (4.20-5.40); White Blood Cell (WBC) Count 7.8 thou/uL (4.8-10.8)
[2021-10-15 08:34] LABS: Anion Gap 14 mmol/L (10-20); BUN (Urea Nitrogen) 14 mg/dL (9.8-20.1); Calc. Creatinine Clearance 64 mL/min (70-130); Calcium 7.9 mg/dL (7.8-10.44); Carbon Dioxide 22 mmol/L (23-31); Chloride 110 mmol/L (98-107); Glucose 115 mg/dL (83-110); Magnesium 2.2 mg/dL (1.6-2.6); Phosphorus 2.7 mg/dL (2.3-4.7); Potassium 3.6 mmol/L (3.5-5.1); Sodium 142 mmol/L (136-145)
[2021-10-15] MEDS: Levothyroxine Sodium 75 MCG TAB PO SCH (08:53)
[2021-10-15] MEDS ORDERED: Aspirin 81 mg Enteric Coated Tablet PO SCH (09:00)
[2021-10-15] MEDS: Polyethylene Glycol 3350 17 GM Packet PO SCH ×2 (09:45→09:55)
[2021-10-15] MEDS: Ferrous Sulfate 325 MG TAB PO SCH (09:45)
[2021-10-15] MEDS: Senokot S 8.6-50 MG TAB PO SCH ×2 (09:45→09:55)
[2021-10-15] MEDS: buPROPion 75 MG TAB PO SCH (09:46)
[2021-10-15] MEDS: Ascorbic Acid 500 mg Chewable Tablet PO SCH (09:46)
[2021-10-15] MEDS: Metoprolol Tartrate 25 MG TAB PO SCH (09:46)
[2021-10-15] MEDS: Nitrofurantoin Monohyd/M-Cryst 100 MG CAP PO SCH (09:46)
[2021-10-15 11:23] VITALS: BP 110/71; TEMP 98.2
== END 2021-10-15 14:28 | DRG 481 ==
LOC: ERS 17:40 → SURG B 19:01
PROVIDERS: ADMIT Orthopaedic Surgery; ATTEND Orthopaedic Surgery
PROC: 0QS606Z Reposition Right Upper Femur with Intramedullary Internal Fixation Device, Open Approach (ICD-10-PCS; principal; 2021-10-12)
PROC: 30233N1 Transfusion of Nonautologous Red Blood Cells into Peripheral Vein, Percutaneous Approach (ICD-10-PCS; 2021-10-12)
PROC: 3E0G76Z Introduction of Nutritional Substance into Upper GI, Via Natural or Artificial Opening (ICD-10-PCS; 2021-10-15)
DX: S72.21XA Displaced subtrochanteric fracture of right femur, initial encounter for closed fracture (principal); Z20.822 Contact with and (suspected) exposure to COVID-19; Z66 Do not resuscitate; D62 Acute posthemorrhagic anemia; E27.40 Unspecified adrenocortical insufficiency; N39.0 Urinary tract infection, site not specified; G89.29 Other chronic pain; M54.9 Dorsalgia, unspecified; F32.A Depression, unspecified; I10 Essential (primary) hypertension; M25.569 Pain in unspecified knee; M19.90 Unspecified osteoarthritis, unspecified site; G30.9 Alzheimer's disease, unspecified; F02.80 Dementia in other diseases classified elsewhere, unspecified severity, without behavioral disturbance, psychotic disturbance, mood disturbance, and anxiety; W17.89XA Other fall from one level to another, initial encounter; I95.9 Hypotension, unspecified; Z98.890 Other specified postprocedural states; Z90.710 Acquired absence of both cervix and uterus; Z88.5 Allergy status to narcotic agent; Z88.8 Allergy status to other drugs, medicaments and biological substances; Z88.1 Allergy status to other antibiotic agents; Z91.041 Radiographic dye allergy status; Z86.73 Personal history of transient ischemic attack (TIA), and cerebral infarction without residual deficits; Z90.49 Acquired absence of other specified parts of digestive tract; Z87.440 Personal history of urinary (tract) infections
CPT/HCPCS: 36415; 36430; 71045; 72170; 76000; 80048; 80053; 81003; 82533; 83735; 84100; 85025; 85027; 86850; 86900; 86901; 93005; C1713; G0390; J1100; J1720; J2370; J2405; J2704; J3010; J3475; J3490; J7030; J7050; P9016; U0002